=== PATIENT | female | born 1995 | race Caucasian/White ===

== ENCOUNTER 2016-05-02 05:52 | Emergency (ER) | payer OTHER ==
[~2016-05-02] VITALS: Ht 167.6 cm; Wt 61.4 kg
[~2016-05-02 05:52] MED LIST: DOCU-41 PO; OXYC5TAB72 PO
[2016-05-02 05:57] VITALS: BP 122/73; PULSE 111; RESP 16; O2SAT 99
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
== END 2016-05-02 07:02 | disposition home or self-care (01) ==
LOC: SED 05:52
DX: S01.81XA Laceration without foreign body of other part of head, initial encounter (principal); Y04.2XXA Assault by strike against or bumped into by another person, initial encounter; Y93.89 Activity, other specified; Y92.009 Unspecified place in unspecified non-institutional (private) residence as the place of occurrence of the external cause; Y99.8 Other external cause status; F17.200 Nicotine dependence, unspecified, uncomplicated; Z88.8 Allergy status to other drugs, medicaments and biological substances